=== PATIENT | female | born 1985 | race Caucasian/White ===

== ENCOUNTER 2017-06-02 08:38 | Emergency (ER) | payer MEDICAID ==
[~2017-06-02] VITALS: Ht 154.9 cm; Wt 59.0 kg
[2017-06-02 08:44] VITALS: BP 104/69
--- NOTE | 2017-06-02 09:20 | Emergency Room Report ---
History of Present Illness General Chief Complaint: Abdominal Pain Source: Patient Present Illness HPI 31-year-old female presents with 3 days of right-sided abdominal pain, pain is sharp nonradiating intermittent, worsening with eating and associated with nausea at the time of pain. No history of prior abdominal or pelvic surgery, renal stones, known gallbladder issues. Denies any dysuria, polyuria or flank pain or fevers or chills. No sick contacts at home. Allergies: Coded Allergies: No Known Allergies (Unverified , 06/02/17) Patient History Past Medical History: none Past Surgical History: none Pertinent Family History: none Social History: Denies: smoking, alcohol use, drug use Now: No Immunizations: UTD Reviewed Nursing Documentation: PMH: Agreed, PSxH: Agreed Nursing Documentation-PMH Past Medical History: No Stated History Review of Systems All Other Systems: negative except mentioned in HPI Physical Exam Vital Signs Date Time Temp Pulse Resp B/P (MAP) Pulse Ox O2 Delivery O2 Flow Rate FiO2 06/02/17 08:44 98.8 103 16 104/69 98 98.8 Sp02 EP Interpretation: reviewed, normal General Appearance: normal inspection, well appearing, no apparent distress, alert, GCS 15, non-toxic Head: normocephalic, atraumatic Eyes: bilateral eye PERRL, bilateral eye EOMI ENT: normal ENT inspection, hearing grossly normal, normal pharynx, no angioedema, normal voice, TMs + canals normal, uvula midline, moist mucus membranes Neck: normal inspection, full range of motion, supple, thyroid normal, no meningismus, no bony tend Respiratory: normal inspection, lungs clear, normal breath sounds, no rhonchi, no respiratory distress, no retraction, no accessory muscle use, no wheezing, speaking full sentences Cardiovascular #1: regular rate, rhythm, no edema, no JVD, normal capillary refill Gastrointestinal: normal inspection, normal bowel sounds, soft, no mass, no peritonitis, non-distended, no guarding, no hernia, no pulsatile mass, other - Abdomen is soft nondistended, no peritonitis. She has mild tenderness to right upper quadrant with palpation without guarding or rebound. Genitourinary: no CVA tenderness Musculoskeletal: normal inspection, back normal, normal range of motion, no calf tenderness, pelvis stable, Vega's Sign negative Neurologic: normal inspection, alert, oriented x3, responsive, harness tier III-XII nml as tested, motor strength/tone normal, cerebellar normal, normal gait, speech normal Psychiatric: normal inspection, judgement/insight normal, mood/affect normal, no suicidal/homicidal ideation, no delusions Skin: normal inspection, normal color, no rash Lymphatic: normal inspection, no adenopathy Medical Decision Making Diagnostic Impression: Primary Impression: Abdominal pain Qualified Codes: R10.11 - Right upper quadrant pain Additional Impression: Pyelonephritis ER Course Vital signs stable, afebrile Labs significant for leukocytosis and bladder infection Given right-sided abdominal pain, presuming pyelonephritis Ultrasound of abdomen indicates hydronephrosis on right side but no stone nO evidence of gallbladder disease on ultrasound - LFTs are otherwise normal. Low suspicion for renal colic, given that pain is constant, and pyelonephritis seems more likely Discharge with oral antibiotics as cases uncomplicated how nephritis, patient tolerating by mouth ER course: Patient has remained stable during ED stay. Disposition: Patient is to be discharged to home. Prescriptions given are ciprfloxaxin Patient is instructed to follow up with their primary care doctor within 5 days. Strict return precautions discussed with patient such as fever, chills, worsening/severe pain, nausea, vomiting, which may indicate severe illness. Patient verbalizes understanding and agrees with plan. Please note that this Emergency Department Report was dictated using Icecreamlabsheel sprayer technology software, occasionally this can lead to erroneous entry secondary to interpretation by the dictation equipment Last Vital Signs Date Time Temp Pulse Resp B/P (MAP) Pulse Ox O2 Delivery O2 Flow Rate FiO2 06/02/17 08:44 98.8 103 16 104/69 98 98.8 Status: improved Disposition: HOME, SELF-CARE Scripts Ciprofloxacin Hcl* (CIPROFLOXACIN HCL*) 500 Mg Tablet 500 MG ORAL Q12H for 7 Days, #14 TAB 0 Refills Prov: HOWARD ALANIZ M.D. 06/02/17 HOWARD ALANIZ M.D. Jun 02, 2017 09:20
[2017-06-02 09:25] LABS: APPEARANCE,URINE TURBID; BILIRUBIN, URINE NEGATIVE (NEGATIVE); GLUCOSE, URINE (UA) NEGATIVE (NEGATIVE); KETONES,URINE 2+ (NEGATIVE); LEUKOCYTE ESTERASE ,URINE 3+ (NEGATIVE); NITRITE,URINE NEGATIVE (NEGATIVE); PH,URINE 7 (4.5-8.0); PROTEIN,URINE 3+ (NEGATIVE); UROBILINOGEN,URINE 1 MG/DL (0.0-1.0)
[2017-06-02 09:26] LABS: COLOR,URINE YELLOW
[2017-06-02] MEDS ORDERED: Ketorolac 30mg Inj IV ONE (09:30)
[2017-06-02 09:57] LABS: BASOPHILS % (AUTO) 0.3 % (0.0-2.0); EOSINOPHILS % (AUTO) 0.1 % (0.0-3.0); HEMATOCRIT 37.1 % (37.0-47.0); HEMOGLOBIN 12.9 G/DL (12.0-16.0); LYMPHOCYTES % (AUTO) 3.6 % (20.0-45.0); MEAN CORPUSCULAR VOLUME 87 FL (80-99); MONOCYTES % (AUTO) 12.5 % (1.0-10.0); NEUTROPHILS % (AUTO) 83.5 % (45.0-75.0); PLATELET COUNT 187 K/UL (150-450); RED BLOOD COUNT 4.27 M/UL (4.20-5.40); RED CELL DISTRIBUTION WIDTH 12.1 % (11.6-14.8); WHITE BLOOD COUNT 17.3 K/UL (4.8-10.8)
[2017-06-02 09:58] LABS: INR 1.1 (0.9-1.1)
[2017-06-02 09:59] LABS: ANION GAP 10 mmol/L (5-15); BLOOD UREA NITROGEN 11 mg/dL (7-18); CALCIUM 8.8 MG/DL (8.5-10.1); CARBON DIOXIDE 24 MMOL/L (21-32); CHLORIDE 102 MMOL/L (98-107); CREATININE 1.3 MG/DL (0.55-1.30); POTASSIUM 3.7 MMOL/L (3.5-5.1); SODIUM 135 MMOL/L (136-145)
[2017-06-02 10:12] LABS: ALANINE AMINOTRANSFERASE 17 U/L (12-78); ALBUMIN 3.1 G/DL (3.4-5.0); ALBUMIN/GLOBULIN RATIO 0.7 (1.0-2.7); ALKALINE PHOSPHATASE 78 U/L (46-116); ASPARTATE AMINO TRANSFERASE 18 U/L (15-37); BILIRUBIN,TOTAL 0.8 MG/DL (0.2-1.0)
[2017-06-02] MEDS ORDERED: cefTRIAXone 1 GM in NS 55 ML IVPB ONE (10:15)
[2017-06-02] MEDS ORDERED: CIPROFLOXACIN500 M2 ORAL (10:36)
--- NOTE | 2017-06-02 11:05 | Diagnostic Imaging Report ---
Indication: Right upper quadrant pain and nausea Technique: Michaels-scale and duplex images of the upper abdomen were obtained Comparison: none Findings: Gallbladder is unremarkable, without stones, wall thickening, nor pericholecystic fluid. Sonographic Cabrales's sign is negative. Common bile duct measures 3 mm in diameter. No intrahepatic biliary ductal dilatation. Liver demonstrates normal echogenicity, no focal abnormality. Portal vein and hepatic veins are patent. Pancreas is unremarkable. Spleen is unremarkable. Left kidney measures 11.5 cm in length. Right kidney measures 12.2 cm length. Both kidneys demonstrate normal echogenicity. There is moderate hydronephrosis of the right kidney. No left hydronephrosis is demonstrated No focal abnormality. The bladder contained trace debris. Non-aneurysmal abdominal aorta . Impression: Moderate left hydronephrosis. Etiology not demonstrated. Consider CT for further evaluation if clinically indicated Debris within the bladder, nonspecific. Technologist reports history of pyelonephritis, so possibly related to such. Negative for gallstones or dilated ducts
[2017-06-02 11:15] VITALS: BP 97/58
== END 2017-06-02 11:17 | disposition home or self-care (01) ==
LOC: EMR 09:35
DX: N12 Tubulo-interstitial nephritis, not specified as acute or chronic (principal); R10.11 Right upper quadrant pain
CPT/HCPCS: 36415; 76700; 80053; 81003; 81025; 83690; 84702; 85025; 85610; 86850; 86900; 86901; 87086; 87181; 96361; 96374; 96375; 99284; J0696; J1885; J2405

== ENCOUNTER 2019-01-30 19:07 | Emergency (ER) | payer MEDICAID ==
[~2019-01-30] VITALS: Ht 157.5 cm; Wt 63.5 kg
[~2019-01-30 19:07] MED LIST: CIPROFLOXACIN500 M2 ORAL
--- NOTE | 2019-01-30 20:50 | Emergency Room Report ---
History of Present Illness General Chief Complaint: Lower Extremity Injury Source: Patient Present Illness HPI The patient states that she has had 2 weeks of right ankle pain and swelling. She denies trauma. She denies other previous episodes of swelling. She states that she has pain with movement and walking. She has not seen another physician for this. She denies long distance travel. She denies chest pain or shortness of breath. She denies fever or chills. She has no other complaints. Allergies: Coded Allergies: No Known Allergies (Unverified , 06/02/17) Patient History Past Medical History: none Social History: Denies: smoking, alcohol use, drug use Last Menstrual Period: 01/18/2019 Now: No Reviewed Nursing Documentation: PMH: Agreed; PSxH: Agreed Nursing Documentation-PMH Past Medical History: No Stated History Review of Systems All Other Systems: negative except mentioned in HPI Physical Exam Vital Signs Date Time Temp Pulse Resp B/P (MAP) Pulse Ox O2 Delivery O2 Flow Rate FiO2 01/30/19 19:17 100.8 99 16 122/78 (93) 96 Room Air Sp02 EP Interpretation: reviewed, normal General Appearance: no apparent distress, alert, GCS 15, non-toxic Head: normocephalic, atraumatic Eyes: bilateral eye normal inspection, bilateral eye PERRL ENT: hearing grossly normal, normal pharynx, no angioedema, normal voice Neck: full range of motion, supple/symm/no masses Respiratory: chest non-tender, lungs clear, normal breath sounds, speaking full sentences Cardiovascular #1: regular rate, rhythm, no edema Gastrointestinal: normal bowel sounds, non tender, soft, non-distended, no guarding, no rebound Rectal: deferred Genitourinary: normal inspection, no CVA tenderness Musculoskeletal: back normal, gait/station normal, normal range of motion, non- tender Neurologic: alert, oriented x3, responsive, motor strength/tone normal, sensory intact, speech normal Psychiatric: judgement/insight normal, memory normal, mood/affect normal, no suicidal/homicidal ideation Medical Decision Making Diagnostic Impression: Primary Impression: Septic arthritis Laboratory Tests Test 01/30/19 22:02 White Blood Count 11.5 K/UL (4.8-10.8) H Red Blood Count 4.12 M/UL (4.20-5.40) L Hemoglobin 12.5 G/DL (12.0-16.0) Hematocrit 34.6 % (37.0-47.0) L Mean Corpuscular Volume 84 FL (80-99) Mean Corpuscular Hemoglobin 30.3 PG (27.0-31.0) Mean Corpuscular Hemoglobin Concent 36.1 G/DL (32.0-36.0) H Red Cell Distribution Width 9.8 % (11.6-14.8) L Platelet Count 168 K/UL (150-450) Mean Platelet Volume 6.8 FL (6.5-10.1) Neutrophils (%) (Auto) 79.6 % (45.0-75.0) H Lymphocytes (%) (Auto) 11.2 % (20.0-45.0) L Monocytes (%) (Auto) 7.9 % (1.0-10.0) Eosinophils (%) (Auto) 0.4 % (0.0-3.0) Basophils (%) (Auto) 0.9 % (0.0-2.0) Sodium Level 134 MMOL/L (136-145) L Potassium Level 3.8 MMOL/L (3.5-5.1) Chloride Level 99 MMOL/L (98-107) Carbon Dioxide Level 26 MMOL/L (21-32) Anion Gap 9 mmol/L (5-15) Blood Urea Nitrogen 12 mg/dL (7-18) Creatinine 0.8 MG/DL (0.55-1.30) Estimate Glomerular Filtration Rate > 60 mL/min (>60) Glucose Level 108 MG/DL (74-106) H Calcium Level 9.4 MG/DL (8.5-10.1) Total Bilirubin 0.5 MG/DL (0.2-1.0) Aspartate Amino Transferase (AST) 34 U/L (15-37) Alanine Aminotransferase (ALT) 22 U/L (12-78) Alkaline Phosphatase 67 U/L (46-116) C-Reactive Protein, Quantitative Pending Total Protein 8.6 G/DL (6.4-8.2) H Albumin 3.7 G/DL (3.4-5.0) Globulin 4.9 g/dL Albumin/Globulin Ratio 0.8 (1.0-2.7) L Last Vital Signs Date Time Temp Pulse Resp B/P (MAP) Pulse Ox O2 Delivery O2 Flow Rate FiO2 01/30/19 19:17 100.8 99 16 122/78 (93) 96 Room Air Scripts No Active Prescriptions or Reported Meds Odalis Emery DO Jan 30, 2019 20:50
[2019-01-30] MEDS ORDERED: cefTRIAXone 1 GM in NS 55 ML IVPB ONE (21:45)
[2019-01-30] MEDS ORDERED: HYDROcodone/Acetamin 5/325 tab ORAL ONE (21:45)
[2019-01-30] MEDS ORDERED: Azithromycin 250mg tab ORAL ONE (21:45)
[2019-01-30] MEDS ORDERED: Lidocaine 2% MPF 5ml Vial INJ ONE (22:00)
--- NOTE | 2019-01-30 22:00 | Diagnostic Imaging Report ---
Indication: Right lower extremity pain and swelling. Technique: Duplex Doppler imaging performed from the right common femoral vein to the popliteal vein. FINDINGS: Normal compressibility demonstrated from the common femoral vein to the popliteal vein. Respiratory phasicity and good augmentation demonstrated on waveform analysis. There is no evidence of thrombosis. IMPRESSION: No evidence of deep venous thrombosis within the right lower extremity.
[2019-01-30 22:39] LABS: BASOPHILS % (AUTO) 0.9 % (0.0-2.0); EOSINOPHILS % (AUTO) 0.4 % (0.0-3.0); HEMATOCRIT 34.6 % (37.0-47.0); HEMOGLOBIN 12.5 G/DL (12.0-16.0); LYMPHOCYTES % (AUTO) 11.2 % (20.0-45.0); MEAN CORPUSCULAR VOLUME 84 FL (80-99); MONOCYTES % (AUTO) 7.9 % (1.0-10.0); NEUTROPHILS % (AUTO) 79.6 % (45.0-75.0); PLATELET COUNT 168 K/UL (150-450); RED BLOOD COUNT 4.12 M/UL (4.20-5.40); RED CELL DISTRIBUTION WIDTH 9.8 % (11.6-14.8); WHITE BLOOD COUNT 11.5 K/UL (4.8-10.8)
[2019-01-30 22:51] LABS: ANION GAP 9 mmol/L (5-15); BLOOD UREA NITROGEN 12 mg/dL (7-18); CALCIUM 9.4 MG/DL (8.5-10.1); CARBON DIOXIDE 26 MMOL/L (21-32); CHLORIDE 99 MMOL/L (98-107); CREATININE 0.8 MG/DL (0.55-1.30); POTASSIUM 3.8 MMOL/L (3.5-5.1); SODIUM 134 MMOL/L (136-145)
[2019-01-30 22:56] LABS: ALANINE AMINOTRANSFERASE 22 U/L (12-78); ALBUMIN 3.7 G/DL (3.4-5.0); ALBUMIN/GLOBULIN RATIO 0.8 (1.0-2.7); ALKALINE PHOSPHATASE 67 U/L (46-116); ASPARTATE AMINO TRANSFERASE 34 U/L (15-37); BILIRUBIN,TOTAL 0.5 MG/DL (0.2-1.0)
[2019-01-31 01:37] VITALS: BP 115/76
--- NOTE | 2019-01-31 12:48 | Diagnostic Imaging Report ---
Indication: Pain right ankle Comparison: None Findings: 3 views of the right ankle obtained. No acute fracture, malalignment, periostitis, or osteochondral defects are identified. Soft tissue swelling noted.. Impression: No acute fracture. Soft tissue swelling noted
--- NOTE | 2019-01-31 12:48 | Diagnostic Imaging Report ---
Indication: Foot Pain Comparison: None Findings: 3 views of the right foot were obtained. No acute fractures, malalignment, erosions or periostitis are identified. Impression: No acute findings.
== END 2019-01-31 01:40 | disposition short-term general hospital (02) ==
LOC: EMR 21:45
DX: M00.9 Pyogenic arthritis, unspecified (principal)
CPT/HCPCS: 36415; 73610; 73630; 80053; 85025; 86140; 93971; 96365; 96375; J0696; Q0144; Z7502; 99284; J7030

== ENCOUNTER 2020-01-24 21:26 | Emergency (ER) | payer MEDICAID ==
[~2020-01-24] VITALS: Ht 157.5 cm; Wt 70.3 kg
[2020-01-24 21:40] VITALS: BP 105/75
--- NOTE | 2020-01-24 21:40 | NUR ---
ED Nurse Note: Recieved pt from home, awake and oriented x 4, here with c/o bilat eye pain with redness and itching for past 5 days at 8/10, pt denies fevers, or any other complaints, no visual changes, pt ambulatory and playing game in cell phone, denies any other complaint.
[2020-01-24] MEDS ORDERED: POLYTRIM OP SOL10 ML BOTH EYES (22:07)
--- NOTE | 2020-01-24 22:07 | Emergency Room Report ---
History of Present Illness General Chief Complaint: Eye Problems Source: Patient Present Illness HPI This is a 34-year-old female with no past medical history. She presents with complaint of left eye redness and pain. Onset for last 5 days. Itchy and red. Little swelling to the lower lid. No fever chills but no drainage. No cough or congestion. She does not wear contacts. No foreign body. Been getting worse. Worse with rubbing her eyes. Better with rest. Allergies: Coded Allergies: No Known Allergies (Unverified , 06/02/17) COVID-19 Screening Contact w/high risk pt: No Experienced COVID-19 symptoms?: No COVID-19 Testing performed STEEL FABRICATOR: No Patient History Past Medical History: see triage record, old chart reviewed Past Surgical History: none Pertinent Family History: none Social History: Denies: smoking Now: No Immunizations: other Reviewed Nursing Documentation: PMH: Agreed; PSxH: Agreed Nursing Documentation-PMH Past Medical History: No Stated History Review of Systems Eye: Reports: eye pain, tearing; Denies: blurred vision ENT: Denies: ear pain, nose congestion, throat swelling Respiratory: Denies: cough, shortness of breath Cardiovascular: Denies: chest pain, palpitations Gastrointestinal: Denies: abdominal pain, diarrhea, nausea, vomiting Musculoskeletal: Denies: back pain, joint pain Skin: Denies: rash Neurological: Denies: headache, numbness Endocrine: Denies: increased thirst, increased urine Hematologic/Lymphatic: Denies: easy bruising All Other Systems: negative except mentioned in HPI Physical Exam Vital Signs Date Time Temp Pulse Resp B/P (MAP) Pulse Ox O2 Delivery O2 Flow Rate FiO2 01/24/20 21:27 98.2 67 18 105/75 (85) 99 Room Air Vitals normal Sp02 EP Interpretation: reviewed, normal General Appearance: well appearing, no apparent distress, alert Head: normocephalic, atraumatic Eyes: left eye other - Left conjunctiva very injected. Sclera also injected. No foreign body. No abrasion.; bilateral eye PERRL, bilateral eye EOMI ENT: hearing grossly normal, normal pharynx Neck: full range of motion, supple, no meningismus Respiratory: chest non-tender, lungs clear, normal breath sounds Cardiovascular #1: regular rate, rhythm, no murmur Gastrointestinal: normal bowel sounds, non tender, no mass, no organomegaly, no bruit, non-distended Musculoskeletal: back normal, normal range of motion, gait/station normal Psychiatric: mood/affect normal Medical Decision Making Diagnostic Impression: Primary Impression: Acute conjunctivitis, left eye Qualified Codes: H10.32 - Unspecified acute conjunctivitis, left eye ER Course Patient presents with conjunctivitis. No evidence of foreign body or corneal abrasion. Will discharge home. Last Vital Signs Date Time Temp Pulse Resp B/P (MAP) Pulse Ox O2 Delivery O2 Flow Rate FiO2 01/24/20 21:27 98.2 67 18 105/75 (85) 99 Room Air Status: unchanged Disposition: HOME, SELF-CARE Condition: Stable Scripts Polymyxin/Trimethoprim (Polytrim Eye Drops) 10 Ml Drops 1 DROP BOTH EYES Q4H, #10 ML Prov: Ryan Hernandez MD 01/24/20 Patient Instructions: Bacterial Conjunctivitis, [id number] Additional Instructions: Treat both eyes. Follow-up with your doctor in 7 days. Return if worse. Ryan Hernandez MD Jan 24, 2020 22:07
[2020-01-24 22:10] VITALS: BP 105/75
--- NOTE | 2020-01-24 22:10 | NUR ---
ER DISCHARGE NOTE: Patient is cleared to be discharged per ERMD, pt is aox4, on room air, with stable vital signs. pt was given dc and prescription instructions, pt was able to verbalize understanding, pt id band removed without complications. pt is able to ambulate with steady gait. pt took all belongings.
== END 2020-01-24 22:10 | disposition home or self-care (01) ==
LOC: EMR 22:00
DX: H10.32 Unspecified acute conjunctivitis, left eye (principal)
CPT/HCPCS: 99282

== ENCOUNTER 2020-01-26 08:43 | Emergency (ER) | payer MEDICAID ==
[~2020-01-26] VITALS: Ht 162.6 cm; Wt 63.5 kg
[~2020-01-26 08:43] MED LIST changes: +POLYTRIM OP SOL10 ML BOTH EYES
[2020-01-26 08:48] VITALS: BP 113/68
[2020-01-26] MEDS ORDERED: Fluorescein Strips ONE (08:59)
[2020-01-26] MEDS ORDERED: ARTIFICIAL TEAR15 ML LEFT EYE (09:02)
[2020-01-26 09:04] VITALS: BP 113/68
[2020-01-26] MEDS ORDERED: Fluorescein Strips LEFT EYE ONE (09:15)
--- NOTE | 2020-01-26 09:16 | Emergency Room Report ---
History of Present Illness General Chief Complaint: Eye Problems Source: Patient Present Illness HPI Disclaimer: Please note that this report is being documented using Inkive technology. This can lead to erroneous entry secondary to incorrect interpretation by the dictating instrument. HPI: 34-year-old female presents for evaluation of left eye pain and irritation. Seen in the emergency department 2 days ago and prescribed Polytrim for conjunctivitis. She has been using the medication for 1 day. Noticed persistent redness and discomfort. Came back for reevaluation. Denies fever, chills, new swelling, pain with extraocular movements, foreign body sensation. Does not wear contact lenses. No trauma reported. Denies changes in vision. PMH: Reviewed PSH: Reviewed Allergies: Reviewed Social Hx: Reviewed Allergies: Coded Allergies: No Known Allergies (Unverified , 06/02/17) COVID-19 Screening Contact w/high risk pt: No Experienced COVID-19 symptoms?: No COVID-19 Testing performed TOOL CRIB SUPERVISOR: No Patient History Last Menstrual Period: 01/07/20 Now: No Nursing Documentation-PMH Past Medical History: No Stated History Review of Systems All Other Systems: negative except mentioned in HPI Physical Exam Vital Signs Date Time Temp Pulse Resp B/P (MAP) Pulse Ox O2 Delivery O2 Flow Rate FiO2 01/26/20 08:47 98.6 61 16 113/68 (83) 94 Room Air General: Awake and alert, no acute distress HEENT: NC/AT. EOMI. no proptosis, no significant lid edema. Left eye has injected sclera and conjunctiva. Increased lacrimation but no purulent drainage. Guerra lamp examination does not find a corneal abrasion or signs of globe trauma. Negative for dendrites, vesicles, abrasion, ulcerations. Negative Elayne sign. Resp: Normal work of breathing Skin: Intact. No abrasions, laceration or rash over the exposed skin MSK: Normal tone and bulk. Moving all extremities. No obvious deformity. Neuro: Awake and alert. Mentating appropriately Medical Decision Making Diagnostic Impression: Primary Impression: Acute conjunctivitis, left eye ER Course 34-year-old female presents for reevaluation of left eye redness after being prescribed Polytrim for conjunctivitis 2 days ago. Exam remains consistent with conjunctivitis. No corneal abrasion or globe trauma identified. No concern for pre or post septal cellulitis clinically. Will prescribe artificial tears in addition to the Polytrim. Instructed her that she needs to finish the entire course of antibiotics and if she noticed changes in swelling, visual acuity, discharge to return to the ED. She understands and agrees with the treatment plan will be discharged home. Last Vital Signs Date Time Temp Pulse Resp B/P (MAP) Pulse Ox O2 Delivery O2 Flow Rate FiO2 01/26/20 09:04 98.6 70 16 113/68 94 Room Air Disposition: HOME, SELF-CARE Condition: Stable Scripts Dextran 70/Hypromellose (ARTIFICIAL TEARS EYE DROPS*) 15 Ml Drops 1 DROP LEFT EYE Q4HR, #15 ML 0 Refills Prov: Adria Pak MD 01/26/20 Referrals: NON PHYSICIAN (PCP) Patient Instructions: Bacterial Conjunctivitis Additional Instructions: Continue antibiotics for the full treatment course. Please follow-up with your primary care doctor in the next 1 to 3 days to discuss this emergency department visit and for reevaluation. If you have any new or worsening symptoms please return to the emergency department for reevaluation. Please note that this report is being documented using Inkive technology. This can lead to erroneous entry secondary to incorrect interpretation by the dictating instrument. Adria Pak MD Jan 26, 2020 09:16
== END 2020-01-26 09:04 | disposition home or self-care (01) ==
LOC: EMR 08:58
DX: H10.32 Unspecified acute conjunctivitis, left eye (principal)
CPT/HCPCS: 99282